=== PATIENT | female | born 1965 | race Hispanic/Latino ===

== ENCOUNTER 2018-10-26 07:49 | Inpatient (IN) | payer MEDICARE ==
[2018-10-24 13:51] LABS: Basophils # (Auto) 0.1 K/mm3 (0.0-0.1); Eosinophils # (Auto) 0.2 K/mm3 (0.0-0.4); Eosinophils % (Auto) 2.3 % (0.0-4.3); Hematocrit 37.5 % (30.3-42.9); Hemoglobin 12.8 gm/dl (10.1-14.3); Lymphocytes # (Auto) 2.8 K/mm3 (1.2-5.4); Lymphocytes % (Auto) 35.6 % (13.4-35.0); Mean Corpuscular HGB Conc 34 % (30-34); Mean Corpuscular Volume 84 fl (79-97); Monocytes # (Auto) 0.9 K/mm3 (0.0-0.8); Platelet Count 159 K/mm3 (140-440); Red Blood Count 4.49 M/mm3 (3.65-5.03); Red Cell Distribution Width 13.9 % (13.2-15.2)
--- NOTE | 2018-10-24 14:35 | Anesthesia Consultation ---
Anesthesia Consult and Med Hx Date of service: 10/24/18 - Airway Anesthetic Teeth Evaluation: Good ROM Head & Neck: Adequate Mental/Hyoid Distance: Adequate Mallampati Class: Class II Intubation Access Assessment: Probably Good - Pulmonary Exam CTA: Yes - Cardiac Exam Cardiac Exam: RRR - Pre-Operative Health Status ASA Pre-Surgery Classification: ASA2 Proposed Anesthetic Plan: General Nerve Block: TAP - Pulmonary Hx Smoking: Yes (Former) SOB: Yes (w/ associated wheezing; albuterol prn (usually 1x/month)) Hx Sleep Apnea: Yes (noncompliant with CPAP) - Cardiovascular System Hx Hypertension: No Hx Heart Attack/AMI: No Hx Percutaneous Transluminal Coronary Angioplasty (PTCA): No Hx Cardia Arrhythmia: No - Central Nervous System Hx Seizures: No CVA: No Hx Back Pain: Yes (sciatic nerve pain) Hx Psychiatric Problems: No - Gastrointestinal Hx Gastroesophageal Reflux Disease: Yes - Endocrine Hx Renal Disease: No Hx Liver Disease: No (fatty liver) Hx Insulin Dependent Diabetes: No Hx Non-Insulin Dependent Diabetes: No Hx Thyroid Disease: No - Other Systems Hx Cancer: Yes (cervical Ca) Hx Obesity: Yes - Additional Comments Anesthesia Medical History Comments: No hx anesthetic complications. Patient is hearing impaired. activities officer Arlene Carson used for interview and consent.
[~2018-10-26 07:49] MED LIST: LACTATED RINGERS 1,000 ML IV SCH; NEURONTIN PO NR; PEPCID IV ONE; SUBLIMAZE IV PRN; VERSED IV NR
[2018-10-26] MEDS ORDERED: XYLOCAINE 1% 20 mL ONE (09:15)
[2018-10-26] MEDS ORDERED: MARCAINE-EPI 0.25%-1:200,000 INFILTRATI ONE (09:15)
[2018-10-26] MEDS ORDERED: DILAUDID IV PRN (09:18)
--- NOTE | 2018-10-26 09:19 | Anesthesia Day of Surgery ---
Anesthesia Day of Surgery - Day of Surgery Patient Examined: Yes Patient H&P Reviewed: Yes Patient is NPO: Yes
--- NOTE | 2018-10-26 10:12 | History and Physical Report ---
History of Present Illness Date of examination: 10/26/18 Date of admission: 10/26/2018 Chief complaint: Abnormal uterine uterine bleeding; complex endometrial hyperplasia History of present illness: 52-year-old with a history of abnormal uterine bleeding. During the patient's evaluation she was found to have findings of complex hyperplasia on endometrial biopsy. Treatment managements were discussed with the patient. The patient elected to undergo definitive surgical management. 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 History: herpes Social history: single - Obstetrical History : 3 Para: 2 Hx # Term Pregnancies: 2 Number of Pregnancies: 0 Spontaneous Abortions: 1 Induced : 0 Number of Living Children: 2 Medications and Allergies Allergies Allergy/AdvReac Type Severity Reaction Status Date / Time Penicillins Allergy Rash Verified 10/20/18 17:12 Home Medications Medication Instructions Recorded Confirmed Last Taken Type Acyclovir [Zovirax Tab] 400 mg PO DAILY PRN 10/20/18 10/20/18 Unknown History Albuterol Sulfate [Proventil Hfa] 2 puff IH Q4H PRN 10/20/18 10/20/18 Unknown History Active Meds: Active Medications Celecoxib (Celebrex) 200 mg PO PREOP NR Stop: 10/26/18 23:59 Fentanyl (Sublimaze) 100 mcg IV ONCE PRN PRN Reason: sedation for nerve block Gabapentin (Neurontin) 300 mg PO PREOP NR Stop: 10/26/18 23:59 Hydromorphone HCl (Dilaudid) 0.5 mg IV Q10MIN PRN PRN Reason: Pain , Severe (7-10) Stop: 10/26/18 20:00 Lactated Ringer's (Lactated Ringers) 1,000 mls @ 100 mls/hr IV DIRECT DEE Midazolam HCl (Versed) 2 mg IV PREOP NR Stop: 10/26/18 23:59 Review of Systems All systems: negative Genitourinary: vaginal discharge - Vital Signs Vital signs: Vital Signs Temp Pulse Resp BP Pulse Ox 98.3 F 77 20 145/68 95 10/24/18 13:15 10/24/18 13:15 10/24/18 13:15 10/24/18 13:15 10/24/18 13:15 Temp Pulse Resp BP Pulse Ox 98.3 F 77 20 145/68 95 10/24/18 13:15 10/24/18 13:15 10/24/18 13:15 10/24/18 13:15 10/24/18 13:15 - Physical Exam Breasts: Positive: deferred Cardiovascular: Regular rate Lungs: Positive: Clear to auscultation Abdomen: Positive: normal appearance Results Result Diagrams: 10/24/18 13:30 All other labs normal. Assessment and Plan - Patient Problems (1) Complex endometrial hyperplasia Current Visit: Yes Status: Acute Plan to address problem: Will proceed with a robotic hysterectomy and bilateral salpingo-oophorectomy (2) Abnormal uterine bleeding Current Visit: Yes Status: Acute
[2018-10-26] MEDS ORDERED: GENTAMICIN/NS 80 MG/100 ML 100 ML IV SCH (10:13)
[2018-10-26] MEDS ORDERED: PHENYLEPHRINE/NS Syringe 1,000 MCG/10 ML IV ONE (10:30)
[2018-10-26] MEDS ORDERED: DECADRON ONE (10:45)
[2018-10-26] MEDS ORDERED: XYLOCAINE MPF 2% ONE (10:45)
[2018-10-26] MEDS ORDERED: ZOFRAN ONE (10:45)
[2018-10-26] MEDS ORDERED: SUBLIMAZE ONE ×2 (10:45→13:42)
[2018-10-26] MEDS ORDERED: ZEMURON IV ONE (10:45)
[2018-10-26] MEDS ORDERED: DIPRIVAN 10 MG/ML IV ONE (10:46)
[2018-10-26] MEDS ORDERED: NEOSPORIN GU IR ONE ×2 (10:53→15:13)
[2018-10-26] MEDS ORDERED: CLEOCIN 900 MG/50 mL 900 MG/50 ML BAG IV NR (11:00)
--- NOTE | 2018-10-26 14:16 | Post Operative Note ---
Date of procedure: 10/26/18 (dictation:[id number]) Pre-op diagnosis: intra-op bowel laceration Post-op diagnosis: other (intra-op colon laceration) Findings: <1cm laceration of transverse colon Procedure: Lysis of Adhesions Repair of colon laceration Anesthesia: GETA Surgeon: DMITRY CABRERA (Co-surgeon - Debra Garcia) Estimated blood loss: minimal Pathology: none Condition: stable Disposition: no change
[2018-10-26] MEDS ORDERED: ROBINUL ONE (14:58)
[2018-10-26] MEDS ORDERED: BLOXIVERZ ONE (14:58)
[2018-10-26] MEDS ORDERED: NACL 0.9% IR ONE ×3 (15:00→15:13)
--- NOTE | 2018-10-26 15:01 | Operative Report ---
PREOPERATIVE DIAGNOSIS: Intraoperative bowel laceration. POSTOPERATIVE DIAGNOSIS: Intraoperative colon laceration. PROCEDURES: 1. Lysis of adhesions. 2. Primary repair of transverse colon laceration. ANESTHESIA: General. CO-SURGEONS: Dr. Disla and Dr. Gacria. ESTIMATED BLOOD LOSS: Less than 20 mL. FINDINGS: Less than 1 cm laceration of the transverse colon on the antimesenteric side of the bowel. There was no contamination. There was no leakage of colon contents. SPECIMENS: None. DRAINS: None. COMPLICATIONS: No complications during our part of the procedure. The patient was stable at the time of transfer of case back to Dr. Maria. INDICATIONS: This is a 52-year-old female who is a patient of Dr. Maria and was scheduled for elective hysterectomy today. Please see her notes for complete details on indications for elective procedure. We were called intraoperatively due to concerns of a bowel laceration during port placement. The patient was already under anesthesia. Implied consent was utilized for performance of the procedure to evaluate for bowel injury and any necessary procedures. OPERATIVE NOTE: The patient was already on the table and anesthetized. Sterile prep and drape had already been performed. There was a small transverse incision where the initial port attempted to be placed. I discussed the case in detail with Dr. Maria to get a better understanding of what was going on. Based on her description, one possibility was that bowel was adhered to the anterior abdominal wall, so we decided just to extend her current incision and see if we can identify the injury and repair it. Skin incisions and subcutaneous tissue were incised to open up the wound laterally. We dissected down to the anterior rectus sheath going layer by layer. I opened that up on the rectus muscle instead of muscle splitting. I figured it would be better to divide the muscle as that will give us better exposure. Once that was done, I gradually went through the posterior sheath and then into the peritoneal cavity. Initially, all I identified was fat tissue that was consistent with either falciform ligament and/or omentum. There were no GI contents visible and there was no smell. There was no obvious injury. Dr. Garcia scrubbed in to assist me and we worked as co-surgeons to evaluate that area. As we did not see any obvious injury after thorough evaluation, we discussed again a plan of potentially putting additional ports that they would use for the robotic hysterectomy to complete our evaluation as we are not finding any specific injury. A 5 mm port was placed by the UNDERGROUND SUPERVISOR team in the right lower quadrant and an 8-mm port in the right upper quadrant. Both were done under direct vision. Utilizing this, we identified that there was an extensive amount of adhesions down the midline. At this point, Dr. Maria gives additional information that she saw stool when the camera port was inserted. With that information, we felt that there clearly had to be a colon injury that we would need a wider exposure to evaluate. Ultimately, we decided to make a midline incision. I took down all the adhesions via an open technique. We completely mobilized the omentum both from the anterior abdominal wall and laterally. I freed up small bowel that was adhered to the anterior abdominal wall. We completely mobilized the omentum and then we brought it up. We had already evaluated the stomach. It appeared completely normal. I saw some slight bruising of the colon underneath the omentum on the antimesenteric side. We detached the omentum from the colon around this area. Ultimately, we did identify a small perforation on the antimesenteric border. There was no leakage of any contents. Using a 3-0 silk stitch, I closed the wound with a running stitch and then I reinforced that area with additional 3-0 silk sutures closing the surrounding tissue with Lembert sutures to reinforce our repair. Everything looked very good. It was hemostatic. There was no leakage of any contents. We made sure we had good hemostasis of the omentum and the body wall that we had just opened. We did this with a combination of electrocautery and the EnSeal device. At this point, we made sure that [facility] was comfortable taking over the case and she resumed care. She will call us if needed for assistance with closure. All counts were correct at this point in the case. There were no obvious complications from our end. The patient was stable at this point. JOB# [id number] VERONICA/AYUSH AUGUSTIN
--- NOTE | 2018-10-26 15:22 | Operative Report ---
Operative Report Operative Report: Date: 10/26/2018 Preoperative diagnosis: Complex endometrial hyperplasia; abnormal uterine bleeding Postoperative diagnosis: Same as above; abdominopelvic adhesive disease Procedure: Exploratory laparotomy; exploratory laparoscopy; Total abdominal hysterectomy; bilateral salpingo-oophorectomy; lysis of adhesions; repair of transverse colon laceration Surgeon: Mariam Maria M.D. Complication: Incidental colon laceration Codifier: Merari Titus Anesthesia: Gen. Endotracheal anesthesia Estimated blood loss: 500 mL Urine output: 750 mL IV fluids: 2100 mL of lactated Ringer's Indication: 52-year-old with a history of complex endometrial hyperplasia. The patient has elected to undergo medical therapy for her condition. Pathology: Uterus cervix tubes and ovaries bilaterally Findings: Extensive omental adhesions to the anterior abdominal wall. Incidental transverse colon laceration Procedure: The risk and benefits and indications of the procedure were reviewed with the patient and informed consent was obtained the patient was taken to the operating room. The patient was placed in supine position and given general anesthesia. The patient was prepped and draped in a normal sterile fashion. A bivalve speculum was placed in the patient's vagina and a single-tooth tenaculum placed on the anterior lip of the cervix. A Hootsuite care uterine manipulator was placed and a moistened laparotomy sponge placed in the vagina. Attention was then turned to the patient's abdomen where a 12 mm supra umbilical incision was made. A Veress needle was placed and peritoneal entry was verified water-filled syringe. Insufflation of the peritoneal cavity was performed with CO2 gas. A 12 mm trocar was placed with the dustin scope. Upon immediate entry into the abdomen there was noted to be an injury to the bowel. General surgery was counseled that at this particular time. Based on the recommendation by general surgery the supra umbilical incision was extended in order to locate the bowel injury. The patient was noted to have omental adhesions and obtaining access to the site of injury was not possible. The decision was made to convert to a exploratory laparotomy. A vertical skin incision was made down to the layer of the fascia which was nicked in the midline and extended laterally with the Bovie cautery. The adhesions were released with sharp and blunt dissection. Small and large intestines were extensively evaluated and the site of injury was noted. There was no evidence of spillage at the laceration. The laceration was approximately 1 cm. The injury was repaired by the general surgeons with 3-0 silk in a normal fashion. An O'Roberto-O'Salinas retractor was placed into the incision and the bowel packed away with moist laparotomy sponges. 2 Caldwell clamps were placed on the cornua and used for retraction. The round ligaments on both sides were clamped transected and suture ligated with 0 Vicryl. The anterior leaf of the broad ligament was then incised along the bladder reflection to the midline from both sides the bladder was then gently dissected off the lower uterine segment and the cervix with a sponge stick. The infundibulopelvic ligament on both sides were doubly clamped transected and suture ligated with 0 Vicryl. Hemostasis was assured. The uterine vessels were then skeletonized bilaterally clamped with Sri clamps transected and suture ligated with 0 Vicryl. The uterosacral ligaments were clamped similarly on both sides transected and suture ligated. The cervix and the uterus were then amputated from the vaginal cuff. The vaginal cuff edges were closed with a Sri fixation stitch and interrupted [id number] stitches in the midline with 0 Vicryl. The pelvis was then copiously irrigated with normal saline. Hemoblast was applied to the surgical sites. All laparotomy sponges and instruments were then removed from the abdomen. The fascia was then closed in looped #1 PDS in a running fashion. The skin was then reapproximated maylin. Pressure dressing was applied to the incision. All sponge laps and needle counts were correct 2. Patient was then successfully extubated. The patient was taken to the recovery room in stable condition.
[2018-10-26] MEDS ORDERED: TYLENOL PO PRN (15:35)
[2018-10-26] MEDS ORDERED: ZOFRAN IV PRN (15:35)
[2018-10-26] MEDS ORDERED: AMBIEN PO PRN (15:35)
[2018-10-26] MEDS ORDERED: PERCOCET 5/325 PO PRN (15:35)
[2018-10-26] MEDS ORDERED: MORPHINE IV PRN (15:35)
[2018-10-26] MEDS ORDERED: DILAUDID ONE (16:04)
--- NOTE | 2018-10-26 17:51 | Post Anesthesia Evaluation ---
- Post Anesthesia Evaluation Patient Participated: Yes Airway Patent: Yes Stable Respiratory Function: Yes Nausea/Vomiting: No Temp > 96.8F: Yes Pain Manageable: Yes Adequeate Hydration: Yes Anesthesia Complications: No Block Receding Appropriately: Yes Patient on Ventilator: No
[2018-10-26] MEDS: TORADOL IV SCH (17:52)
[2018-10-26] MEDS: D5LR 1,000 ML IV SCH (17:55)
[2018-10-27] MEDS: TORADOL IV SCH ×6 (00:30→22:03)
[2018-10-27] MEDS: D5LR 1,000 ML IV SCH ×3 (03:18→17:21)
[2018-10-27 06:25] LABS: Hematocrit 30.8 % (30.3-42.9); Hemoglobin 10.3 gm/dl (10.1-14.3)
--- NOTE | 2018-10-27 08:53 | Progress Note ---
Assessment and Plan - Patient Problems (1) Complex endometrial hyperplasia Current Visit: Yes Status: Acute Plan to address problem: will advance to ice chips (2) Abnormal uterine bleeding Current Visit: Yes Status: Acute Subjective - Subjective Date of service: 10/27/18 Interval history: Had an extensive conversation with patient using an car repairer apprentice. Details of surgery discussed with patient. Patient very upset she had to receive an exploratory laparotomy for repair of a bowel injury. Made an attempt to discuss the importance of the procedure. Patient states she is experiencing postop pain but declined pain meds early. She does not want to ambulate at this time. Patient requests having an car repairer apprentice 24hours. Patient reports: no appetite normal, no voiding normally, no pain well controlled Objective - Vital Signs Latest vital signs: Vital Signs Temp Pulse Pulse Resp BP BP Pulse Ox 10/27/18 07:23 98.3 F 69 16 86/37 95 10/27/18 06:15 98 F 75 16 97/45 94 10/27/18 00:15 97.8 F 74 18 91/51 95 10/26/18 21:45 72 14 92 10/26/18 20:30 97.9 F 77 16 111/60 95 10/26/18 17:00 18 136/56 10/26/18 16:30 97.2 F L 63 14 129/72 96 10/26/18 16:00 66 14 127/77 100 10/26/18 15:45 65 14 133/73 100 10/26/18 15:30 69 12 118/68 100 10/26/18 15:25 69 12 123/68 100 10/26/18 15:19 97.9 F 77 16 109/63 99 10/26/18 10:23 18 10/26/18 09:45 69 22 105/48 97 10/26/18 09:40 65 14 118/58 96 10/26/18 09:30 72 16 122/68 97 10/26/18 09:24 65 12 127/77 97 10/26/18 09:23 18 10/26/18 09:19 68 9 L 138/65 97 10/26/18 09:18 18 10/26/18 09:15 68 10 L 141/67 100 Intake and Output 10/26/18 10/27/18 10/27/18 22:59 06:59 14:59 Intake Total 200 1000 Output Total 2550 1200 Balance -2350 1000 -1200 Intake: IV 200 1000 D5lr 1,000 ml @ 125 mls/ 1000 hr IV DIRECT DEE Rx#: [id number] Output: Urine 2550 1200 Indwelling Catheter 800 1200 Other: Total, Output Amount 800 1200 Voiding Method Indwelling Catheter Indwelling Catheter - Exam Abdomen: Present: soft, other (bowel sounds noted) Incision: Present: dressed
[2018-10-27] MEDS ORDERED: NACL 0.9% 1000 ML 1,000 ML IV ONE (09:00)
--- NOTE | 2018-10-27 15:12 | Progress Note ---
Assessment and Plan 52 yo F s/p Lysis of Adhesions, Repair of transverse colon laceration, POD 1 Plan: 1. start clear liquids 2. needs to ambulate 3. IVF 4. DVT ppx 5. prn pain control - Explain the importance of taking pain medication in order to facilitate getting out of bed. Once able come out we will change the oral pain medication 6. Is/Pulm toilet 7. await bowel function- Patient very concerned that she has not passed flatus. Explained to her that she will regain bowel function and it will take time. However it is not necessary to start liquid diet. Also reinforced the importance of getting OOb to help with regaining bowel function. All questions answered and plan explained via display and banner designer. Family present. Thank you, please call with questions. Subjective Date of service: 10/27/18 Narrative: Came to see patient around 130pm. No display and banner designer available. Service contacted. [employer] ETA is 430pm per paper sales representative at inventory worker service. Pt seen and examined.With display and banner designer at bedside. Patient c/o incisional pain. however she is afraid to use the pain medications because she feels she may overdose taking them every 3 to 4 hours. She was reluctant to have boudreaux removed. She has not gotten out of bed due to incisional pain. no f/c. Tolerating ice chips. No flatus. No n/v. Family at bedside Objective Vital Signs - 12hr 10/27/18 10/27/18 10/27/18 06:15 07:23 13:26 Temperature 98 F 98.3 F Pulse Rate 75 69 70 Respiratory 16 16 Rate Blood Pressure 91/39 Blood Pressure 97/45 86/37 [Left] O2 Sat by Pulse 94 95 95 Oximetry - General physical appearance Narrative Exam: General: awake alert oriented times 3. No apparent distress CV: S1, S2+ Respiratory: even and unlabored Abdomen: soft, ND, minimal tenderness near midline incision. Dressing clean, dry and intact Extremities: no clubbing, cyanosis or edema : boudreaux with clear yellow urine - Labs 10/27/18 06:11
--- NOTE | 2018-10-27 16:36 | Event Note ---
Date: 10/27/18 Patient has requested the presence of her physician after being seen this am for >45 min with an spanish interpreter. The patient has not allowed her boudreaux to be removed because she refuses to ambulate. The family is present and extremely upset that an spanish interpreter has not provided for 24 hours during her hospitalization. Patient is tolerating sips and chips. UOP is adequate. Patient is not tachycardic despite borderline hypotension however has consistently had similar blood pressures. She denies any chest pain or SOB. Awaiting to speak with patient again with an spanish interpreter to answer any additional concerns.
[2018-10-28] MEDS: TORADOL IV SCH ×4 (05:29→22:00)
--- NOTE | 2018-10-28 10:34 | Progress Note ---
Assessment and Plan A: POD#2 s/p Exploratory laparotomy; exploratory laparoscopy; Total abdominal hysterectomy; bilateral salpingo-oophorectomy; lysis of adhesions; repair of transverse colon laceration doing well this morning P: Advance to full liquid diet Continue routine postop care PO pain medication PRN Subjective - Subjective Date of service: 10/28/18 Principal diagnosis: s/p ex lap, ex laparoscopy, LALI/BSO, RICKEY, Repair of bowel injury Interval history: Late entry. Pt feeling much better this morning. Overnight, boudreaux discontinued and pt voided, passed flatus this morning. Ambulating around room. Tolerating clear liquid diet Patient reports: appetite normal, voiding normally, pain well controlled, flatus, ambulating normally, no bowel movement Objective - Vital Signs Latest vital signs: Vital Signs Temp Pulse Resp BP BP Pulse Ox 10/28/18 07:32 98.1 F 81 16 102/53 95 10/28/18 05:06 98.2 F 69 20 145/58 93 10/28/18 00:20 98.4 F 85 18 121/57 94 10/27/18 19:45 18 97 10/27/18 19:38 98.3 F 63 16 134/65 98 10/27/18 16:39 16 10/27/18 16:33 67 16 98/49 98 10/27/18 13:26 70 91/39 95 Intake and Output 10/27/18 10/28/18 10/28/18 22:59 06:59 14:59 Intake Total 1966.25 240 Output Total 950 Balance 1016.25 240 Intake: IV 906.25 D5lr 1,000 ml @ 125 mls/ 906.25 hr IV DIRECT DEE Rx#: [id number] Oral 800 Intake, Free Water 260 240 Output: Urine 950 Indwelling Catheter 950 Other: Total, Output Amount 450 Voiding Method Toilet # Voids 1 Indwelling Catheter 1 Void 400 Weight 90.718 kg - Exam Breasts: Present: deferred Cardiovascular: Present: Regular rate Lungs: Present: Clear to auscultation Abdomen: Present: soft, normal bowel sounds Extremities: Present: normal Incision: Present: intact (with maylin )
--- NOTE | 2018-10-28 10:34 | Progress Note ---
Assessment and Plan 52 yo F s/p Lysis of Adhesions, Repair of transverse colon laceration, POD 2 Plan: 1. adv to full liquids today and soft diet for breakfast tomorrow 2. continue ambulating 3. ok to dc IVF 4. DVT ppx 5. prn pain control - will transition to oral percocet prn 6. Is/Pulm toilet 7. abdominal binder Ok to dc patient tomorrow if she tolerates soft diet. She may be discharged on soft diet and follow up with DIRECTOR [employer]ORAGE ENGINEER[employer] as outpatient for continued post op care. Discussed plan with Dr. Ttius and patient's nurse. All questions answered and plan explained via senior visual designer. Family present. Thank you, please call with questions. Subjective Date of service: 10/28/18 Narrative: Pt seen and examined. unarmed security officer present. Patient has been doing well. She has been ambulating, voiding on her own. [place] was removed last night. No f/c. Tolerating clear liquids. She passed flatus. No n/v. Abdominal pain is controlled. States it hurts to cough Objective Vital Signs - 12hr 10/28/18 10/28/18 10/28/18 00:20 05:06 07:32 Temperature 98.4 F 98.2 F 98.1 F Pulse Rate 85 69 81 Respiratory 18 20 16 Rate Blood Pressure 121/57 145/58 102/53 O2 Sat by Pulse 94 93 95 Oximetry - General physical appearance Narrative Exam: Gen: AAOx3. NAD CV: s1, S2+ resp; even and unlabored Abd: soft, NT, ND. Incision c/d/i Ext: no c/c/e - Labs 10/27/18 06:11
[2018-10-28] MEDS: PERCOCET 5/325 PO PRN (14:38)
[2018-10-29] MEDS: IBUPROFEN PO PRN ×2 (01:28→09:19)
[2018-10-29] MEDS: TORADOL IV SCH (04:00)
[2018-10-29] MEDS: PERCOCET 5/325 PO PRN ×2 (09:18→13:00)
--- NOTE | 2018-10-29 11:57 | Progress Note ---
Assessment and Plan A: POD#3 s/p Exploratory laparotomy; exploratory laparoscopy; Total abdominal hysterectomy; bilateral salpingo-oophorectomy; lysis of adhesions; repair of transverse colon laceration doing well this morning P: Routine postoperative care Discharge today with follow up for staple removal Subjective - Subjective Date of service: 10/29/18 Principal diagnosis: s/p ex lap, ex laparoscopy, LALI/BSO, RICKEY, Repair of bowel injury Interval history: No overnight events. Tolerating soft diet. Passing flatus. Some drainage from incision this morning, serousanguinous. Patient reports: appetite normal, voiding normally, pain well controlled, flatus, ambulating normally, no bowel movement Objective - Vital Signs Latest vital signs: Vital Signs Temp Pulse Resp Resp BP BP Pulse Ox 10/29/18 08:41 98.4 F 71 20 112/59 95 10/29/18 04:58 98.3 F 75 20 114/57 96 10/29/18 04:00 18 10/29/18 02:28 18 10/29/18 01:28 18 10/29/18 00:38 95 H 97 10/29/18 00:32 98.2 F 83 20 108/57 92 10/28/18 22:00 18 10/28/18 21:29 98.1 F 78 18 121/54 94 10/28/18 21:15 98.0 F 74 18 101/52 96 10/28/18 20:00 18 10/28/18 16:05 98.4 F 81 16 97/64 92 10/28/18 12:28 98.6 F 84 16 115/64 94 Intake and Output 10/28/18 10/29/18 10/29/18 22:59 06:59 14:59 Intake Total 120 120 Balance 120 120 Intake: Oral 120 Intake, Free Water 120 Other: Total, Intake Amount 120 # Voids Indwelling Catheter 1 Void 1 - Exam Breasts: Present: deferred Cardiovascular: Present: Regular rate Lungs: Present: Clear to auscultation Abdomen: Present: soft (obese ), normal bowel sounds Incision: Present: intact (with maylin, minimal eruythema surrounding maylin )
--- NOTE | 2018-10-29 11:58 | Discharge Summary ---
Providers - Providers Date of Admission: 10/26/18 15:35 Date of discharge: 10/29/18 Attending physician: ISMAEL MURILLO Primary care physician: ALF SPARKS MD Hospitalization Reason for admission: other (surgery ) Procedure details: Please see operative report. Incision: intact (with maylin ) Hospital course: The patient was admitted for surgical management of dysfunctional uterine bleeding and complex endometrial hyperplasia. She underwent an exploratory laparotomy; exploratory laparoscopy; Total abdominal hysterectomy; bilateral salpingo-oophorectomy; lysis of adhesions; repair of transverse colon laceration which she tolerated well. Her postoperative course was uncomplicated and she met discharge criteria on POD#3. She will follow up in 1 week for staple removal with Dr Titus. Condition at discharge: Stable Disposition: ND-01 TO HOME OR SELFCARE - Discharge Diagnoses (1) Deaf Status: Acute (2) Abnormal uterine bleeding Status: Acute (3) Complex endometrial hyperplasia Status: Acute (4) Obesity Status: Acute Qualifiers: Obesity type: unspecified obesity type Obesity classification: adult class 2 (BMI 35 - 39.9) Body mass index: BMI 37.0-37.9 Plan - Provider Discharge Summary Activity: no sex for 6 weeks, no heavy lifting 4 weeks, no strenuous exercise Diet: other (Soft diet) Additional instructions: [] Smoking cessation referral if applicable(refer to patient education folder for contact #) [] Refer to [facility] Booklet Call your doctor immediately for: * Fever > 100.5 * Heavy vaginal bleeding ( >1 pad per hour) * Severe persistent headache * Shortness of breath * Reddened, hot, painful area to leg or breast * Drainage or odor from incision. * Keep incision clean and dry at all times and follow doctor's instructions regarding bathing/showering - Follow up plan Follow up: ALF SPARKS MD [Primary Care Provider] - 7 Days MALAIKA TITUS MD [Staff Physician] - 11/07/18 (Please call to schedule staple removal. Pt needs appt in [facility] mechanic. ) Forms: [facility] Discharge Summary
[2018-10-29 12:23] VITALS: BP 105/56
== END 2018-10-29 14:00 | disposition home or self-care (01) | DRG 742 ==
LOC: OR 07:49 → OB 15:35
PROVIDERS: ADMIT Obstetrics & Gynecology; ATTEND Obstetrics & Gynecology
PROC: 0UT90ZZ Resection of Uterus, Open Approach (ICD-10-PCS; principal; 2018-10-26)
PROC: 0DNU0ZZ Release Omentum, Open Approach (ICD-10-PCS; 2018-10-26)
PROC: 0WJG4ZZ Inspection of Peritoneal Cavity, Percutaneous Endoscopic Approach (ICD-10-PCS; 2018-10-26)
PROC: 0UT60ZZ Resection of Left Fallopian Tube, Open Approach (ICD-10-PCS; 2018-10-26)
PROC: 0UT20ZZ Resection of Bilateral Ovaries, Open Approach (ICD-10-PCS; 2018-10-26)
PROC: 0DQL0ZZ Repair Transverse Colon, Open Approach (ICD-10-PCS; 2018-10-26)
DX: N85.01 Benign endometrial hyperplasia (principal); K91.72 Accidental puncture and laceration of a digestive system organ or structure during other procedure; N73.6 Female pelvic peritoneal adhesions (postinfective); N93.8 Other specified abnormal uterine and vaginal bleeding; K21.9 Gastro-esophageal reflux disease without esophagitis; G47.30 Sleep apnea, unspecified; E66.9 Obesity, unspecified; Z90.79 Acquired absence of other genital organ(s); Z90.49 Acquired absence of other specified parts of digestive tract; Z88.0 Allergy status to penicillin; Z87.891 Personal history of nicotine dependence; Z68.37 Body mass index [BMI] 37.0-37.9, adult; Z85.41 Personal history of malignant neoplasm of cervix uteri; Y83.8 Other surgical procedures as the cause of abnormal reaction of the patient, or of later complication, without mention of misadventure at the time of the procedure; Y92.234 Operating room of hospital as the place of occurrence of the external cause
CPT/HCPCS: 36415; 64450; 84703; 85014; 85018; 85025; 86850; 86900; 86901; 88307; 88309; G0378; A4217; J0735; J1100; J1170; J1580; J1885; J2250; J2270; J2370; J2405; J2704; J2710; J3010; J7030; J7120; J7121

== ENCOUNTER 2018-12-29 09:08 | Outpatient (CLI) | payer MEDICARE ==
[2018-11-24 10:06] LABS: Blood Urea Nitrogen 13 mg/dL (7-17)
[2018-12-29 09:56] LABS: Blood Urea Nitrogen 10 mg/dL (7-17)
--- NOTE | 2018-12-29 11:34 | Cat Scan Report ---
CT abdomen pelvis w con INDICATION: R11.0 NAUSEA/BOWEL REPAIR/BSO. TECHNIQUE: All CT scans at this location are performed using the following dose modulation technique: Automated exposure control. Helical slices were obtained through the abdomen and pelvis following the administr ation of intravenous and oral contrast COMPARISON: None available. FINDINGS: Abdomen: Lung bases appear clear. No acute abnormality is seen in the liver, spleen, pancreas, adrena l glands, kidneys. There is a tiny cyst in the mid left kidney. The aorta is normal in diameter. Ther e is no adenopathy. Post laparotomy changes are noted in the anterior abdominal. There are no abnorma l fluid collections There is stranding in the fat in the mesenteric fat in the left lower quadrant. Is likely the inferio r aspect of the greater omentum. No fluid collection is seen. There is no obstruction. There is no free air. Pelvis: There is stranding in the peritoneal fat in the left lower quadrant and left pelvis. This is likely the inferior aspect of the greater omentum. There are no abnormal fluid collections. On review of bone windows, no acute osseous abnormalities are seen. IMPRESSION: 1. There is stranding in the peritoneal fat in the left lower quadrant and left pelvis. This is likel y the inferior aspect of the greater omentum. Stranding likely represents omental scar or omental inf arction. There is no abscess, obstruction, or free air. Signer Name: Alec Hernández MD Signed: 12/29/2018 11:30 AM Workstation Name: [id number]
== END 2018-12-29 09:09 | disposition home or self-care (01) ==
LOC: CT 09:08
PROVIDERS: ATTEND Obstetrics & Gynecology
DX: C54.1 Malignant neoplasm of endometrium (principal); R11.0 Nausea; E66.9 Obesity, unspecified; K21.9 Gastro-esophageal reflux disease without esophagitis
CPT/HCPCS: 36415; 74177; 82565; 84520